=== PATIENT | female | born 1985 | race Asian ===

== ENCOUNTER → 2016-06-13 | Day surgery (SDC) | payer BC ==
[~2016-06-13] MED LIST: IBUPROFEN800 MG PO; PRENATAL1 TA2 PO
--- NOTE | 2016-06-15 15:04 | Operative Report ---
Operative/Inv Procedure Report Surgery Date: 06/13/16 Name of Procedure: LTS Pre-Operative Diagnosis: undesired fertility Post-Operative Diagnosis: same Estimated Blood Loss: scant Surgeon/Conservation Policy Analyst: AYDIN CALLAHAN,SHEREE Dutta Anesthesia: general endotracheal tube Complications: none Condition: good Operative/Procedure Note Note: Pt was taken to the OR preped and draped in the usual sterile fashon. Carson placed in the bladder and [place] cannula placed in the cervix for mobilization. A stab wound incision placed in the umblicus through which a veries needle was placed and the abdominal/pelvic cavity was insufflated with 3 L of CO2. A visiport laparoscopic cannula was placed through the umbilical incision under visual guidence into the abdominal cavity with normal findings photos were taken. Under laparoscop visulization a second stab wound was made in the midline 2 cm above the pubic symphesis through which a second 5 mm trocar was placed under laparoscopic visualization. The right tube was grasped in a relatively avascular spot and electricity was introduced until O resistance was met this was repeated in adjasent portions of the tube until a 4cm length of tube was coagulated.The left tube was grasped in a relatively avascular spot and electricity was introduced until O resistance was met this was repeated in adjasent portions of the tube until a 4cm length of tube was coagulated. taking care that there were no adventitious rodrigues. inspection of the pelvis showed no rodrigues. the trocars were removed as well as the CO2. incisions were closed with 0-polysorb in the fascia and 4-0 polysorb subcut.
== END ==
LOC: STS 04:51
DX: Z30.2 Encounter for sterilization (principal)
CPT/HCPCS: 81025; J2250